=== PATIENT | male | born 1995 | race Caucasian/White ===

== ENCOUNTER 2018-07-12 12:48 | Emergency (ER) | payer OTHER ==
[2018-07-12] MEDS ORDERED: DIPH/PERTUSS(ACELL)/TETANUS VAC/PF 0.5 ML SYR (>=10YO) IM ONE (13:26)
[2018-07-12] MEDS ORDERED: LIDOCAINE 1% INJ-PF (10 MG/ML) 30 ML SDV INJ ONE (13:26)
--- NOTE | 2018-07-12 13:44 | ER Document Report ---
HPI - HPI Pain Level: 1 Notes: Patient is a 22-year-old male with no significant past medical history who presents to the ED complaining of a laceration to his left posterior thumb after reaching into his trashcan today. Patient states that he is still able to move his thumb through range of motion without difficulties. Patient states that the blood has soaked her a couple paper towels that he tried putting over it. Patient states that he washed it immediately. Patient states that he has not had any numbness or tingling associated. Denies any drug allergies. Patient states that he is part the and has all the shots up-to-date that he is aware of and believes that he had a tetanus when he was 17 or 18 years old. Patient states that he is going to go to his BAS to confirm this tomorrow. Denies any headache, fever, chest pain, palpitations, syncope, cough , shortness of breath, wheeze, dyspnea, abdominal pain, nausea/vomiting/diarrhea , numbness/tingling, muscle paralysis/weakness, or rash. - ROS Systems Reviewed and Negative: Yes All other systems reviewed and negative Past Medical History - Social History Smoking Status: Never Smoker Family History: Reviewed & Not Pertinent Vertical Provider Document - CONSTITUTIONAL Agree With Documented VS: Yes Notes: PHYSICAL EXAMINATION: GENERAL: Well-appearing, well-nourished and in no acute distress. LUNGS: Breath sounds clear to auscultation bilaterally and equal. No wheezes rales or rhonchi. HEART: Regular rate and rhythm without murmurs, rubs, gallops. Musculoskeletal: Left thumb: FROM to passive/active. Strength 5+/5. No bony tenderness or deformity. N/v intact distal. Extremities: No cyanosis, clubbing, or edema b/l. Peripheral pulses 2+. Capillary refill less than 3 seconds. NEUROLOGICAL: Normal speech, normal gait. Normal sensory, motor exams PSYCH: Normal mood, normal affect. SKIN: Lt posterior mid thumb: there is a 2cm irregular superficial laceration noted. Minimal active bleeding currently. No injury to nail. Course - Re-evaluation Re-evalutation: 07/12/18 14:27 Patient is an afebrile, well-hydrated, 22-year-old male who presents to the ED with a superficial skin laceration to the left posterior thumb. Vitals are acceptable without any significant tachycardia, tachypnea, or hypoxia. PE is otherwise unremarkable for any neurovascular compromise, obvious tendon/ ligament rupture, obvious fracture/dislocation, septic joint, retained foreign body. Tetanus was reported to be up-to-date, but patient will confirm with his [facility] tomorrow. Phenergan was given IM for nausea as well as Zofran. Patient did have one episode of vomiting since Zofran was given because he looked at his wound. Patient is feeling much better after vomiting and having the IM Phenergan. He is tolerating p.o. without difficulties. Patient is nontoxic- appearing. Wound was thoroughly irrigated and cleansed. Wound edges were approximated appropriately utilizing 4 simple sutures. Procedure performed by MARIE Valdez under supervision. Wound dressing was applied and a splint. No labs or imaging warranted at this time based on H&P. Sutures will need removed in approximately 10 days. We will send him home with a prescription for Keflex. Conservative measures for symptoms otherwise. Recheck with your PCM in 2-3 days. Return to the ED with any worsening/concerning symptoms otherwise as reviewed in discharge. Patient is in agreement. Procedures - Laceration/Wound Repair Left Thumb Time completed: 14:25 Wound length (cm): 2 Wound's Depth, Shape: Superficial, Irregular Laceration pre-procedure: Sterile PPE donned, Sterile drapes applied, Other - chlorhexadine/saline Anesthetic type: 1% Lidocaine Volume Anesthetic (mLs): 4 Wound explored: Clean, No foreign body removed Irrigated w/ Saline (mLs): 120 Wound Debrided: none Wound Repaired With: Sutures Suture Size/Type: 5:0, Nylon Number of Sutures: 4 Layer Closure?: No Post-procedure wound care: Sterile dressing applied, Splint applied Post-procedure NV exam normal: Yes Complications: No Discharge - Discharge Clinical Impression: Thumb laceration Qualifiers: Encounter type: initial encounter Damage to nail status: without damage Foreign body presence: without foreign body Laterality: left Qualified Code(s): S61.012A - Laceration without foreign body of left thumb without damage to nail , initial encounter Condition: Stable Disposition: HOME, SELF-CARE Instructions: Antibiotic Ointment Protection ([facility]), Laceration Care ([facility]), Prophylactic Antibiotic ([facility]), Soap Cleansing ([facility]) Additional Instructions: Do not shower or bathe for 24 hours. After 24 hours you may shower but no submersion of the wound under water. Keep the original dressing on the wound for 24 hours unless the drainage soaks through. Change the dressing daily thereafter and keep the knots of the suture material clean from any dried discharge. You may leave the wound open to the air once there is no more discharge. Return to the ED and/or your PCM in 2-3 days for a recheck. Monitor for any signs of worsening pain or redness, purulent drainage, streaks, and/or fever. Return to the ED if noticing any of the above symptoms or as needed. Take medications as directed. Your sutures will need to be removed in about 10 days. Prescriptions: Cephalexin Monohydrate [Keflex 500 mg Capsule] 500 mg PO TID #21 capsule Forms: Elevated Blood Pressure Referrals: [facility]) [Provider Group] - Follow up as needed
[2018-07-12] MEDS ORDERED: ONDANSETRON HCL 8 MG TABLET ONE (14:07)
[2018-07-12] MEDS ORDERED: PROMETHAZINE HCL INJ 25 MG/1 ML VIAL IM ONE (14:14)
[2018-07-12 15:12] VITALS: BP 132/60
== END 2018-07-12 15:10 | disposition home or self-care (01) ==
LOC: ER 12:48
DX: S61.012A Laceration without foreign body of left thumb without damage to nail, initial encounter (principal); X58.XXXA Exposure to other specified factors, initial encounter; R11.2 Nausea with vomiting, unspecified
CPT/HCPCS: 99282; 96372; 12001; J3490; S0119; J2550